=== PATIENT | male | born 1975 | race Caucasian/White ===

== ENCOUNTER 2018-08-23 15:53 | Inpatient (IN) | payer SELFPAY ==
[2018-08-23 16:18] LABS: Basophils # (Auto) 0.3 K/mm3 (0.0-0.1); Basophils % (Auto) 2.7 % (0.0-1.8); Eosinophils % (Auto) 0.2 % (0.0-4.3); Hematocrit 36.4 % (35.5-45.6); Hemoglobin 12.7 gm/dl (11.8-15.2); Lymphocytes # (Auto) 1.2 K/mm3 (1.2-5.4); Lymphocytes % (Auto) 12.7 % (13.4-35.0); Mean Corpuscular HGB Conc 35 % (32-34); Mean Corpuscular Volume 101 fl (84-94); Monocytes # (Auto) 0.4 K/mm3 (0.0-0.8); Monocytes % (Auto) 4.6 % (0.0-7.3); Platelet Count 187 K/mm3 (140-440); Red Blood Count 3.61 M/mm3 (3.65-5.03); Red Cell Distribution Width 14.4 % (13.2-15.2)
[2018-08-23 16:23] LABS: INR 1.05 (0.87-1.13)
[2018-08-23 16:24] LABS: Partial Thromboplastin Time 21.5 Sec. (24.2-36.6)
[2018-08-23 16:29] LABS: Alanine Aminotransferase 77 units/L (7-56); Albumin 3.7 g/dL (3.9-5); BUN/Creatinine Ratio 15; Blood Urea Nitrogen 6 mg/dL (9-20); Hemolysis Index 16
[2018-08-23] MEDS ORDERED: LIDOCAINE VISCOUS 2% PO ONE (17:04)
[2018-08-23] MEDS ORDERED: ALUM-MAG HYDROX-SIMETH 200-200-20MG/5ML PO ONE (17:04)
[2018-08-23] MEDS ORDERED: NACL 0.9% 1000 ML 1,000 ML IV ONE ×2 (17:04→18:26)
--- NOTE | 2018-08-23 17:08 | Emergency Department Report ---
ED General Adult HPI - General Chief complaint: Weakness Stated complaint: WEAKNESS/LEGS NUMB Time Seen by Provider: 08/23/18 17:03 Source: EMS Mode of arrival: Stretcher Limitations: Physical Limitation - History of Present Illness Initial comments: Patient is a 43-year-old male Emergency with complaints of epigastric pain and bilateral leg numbness and weakness. Patient states that his symptoms been going on for 2 days. Patient states that he is also having nausea and vomiting. Patient states falling frequently. Patient states that he has been drinking a lot of all call for the past 2 months. Patient states epigastric pain as a 10 out of 10 and is nonradiating. Patient states that the pain is better with rest and worse with alcohol and food intake. Patient also states the pain is worse with vomiting. Patient's last alcoholic drink this morning. -: Sudden Location: abdomen Radiation: non-radiation Severity scale (0 -10): 10 Quality: burning Consistency: constant Improves with: rest Worsens with: eating Associated Symptoms: nausea/vomiting, weakness. denies: confusion, chest pain, cough, diaphoresis, fever/chills, headaches, loss of appetite, malaise, rash, seizure, shortness of breath, syncope Treatments Prior to Arrival: none - Related Data Home Medications Medication Instructions Recorded Confirmed Last Taken Esomeprazole Magnesium [Nexium] 10 mg PO DAILY 03/23/14 08/23/18 Unknown ALPRAZolam [Xanax TAB] 0.25 mg PO TID 08/23/18 08/23/18 Unknown Acetaminophen/Diphenhydramine 1 tab PO DAILY 08/23/18 08/23/18 Unknown [Acetaminophen-Diphenhyd 500-25] Atenolol/Chlorthalidone [Tenoretic 1 tab PO QDAY 08/23/18 08/23/18 Unknown 50-25] PARoxetine [Paxil] 20 mg PO DAILY 08/23/18 08/23/18 Unknown Tamsulosin [Flomax] 0.4 mg PO QDAY 08/23/18 08/23/18 Unknown amLODIPine [Norvasc] 10 mg PO DAILY 08/23/18 08/23/18 Unknown Allergies Allergy/AdvReac Type Severity Reaction Status Date / Time No Known Allergies Allergy Unverified 03/23/14 09:26 ED Review of Systems ROS: Stated complaint: WEAKNESS/LEGS NUMB Other details as noted in HPI Constitutional: denies: chills, fever Eyes: denies: eye pain, eye discharge, vision change ENT: denies: ear pain, throat pain Respiratory: denies: cough, shortness of breath, wheezing Cardiovascular: denies: chest pain, palpitations Endocrine: no symptoms reported Gastrointestinal: abdominal pain, nausea, vomiting. denies: diarrhea, constipation, hematemesis, melena, hematochezia Genitourinary: denies: urgency, dysuria Musculoskeletal: denies: back pain, joint swelling, arthralgia Skin: denies: rash, lesions Neurological: weakness, numbness. denies: headache Psychiatric: denies: anxiety, depression Hematological/Lymphatic: denies: easy bleeding, easy bruising ED Past Medical Hx - Past Medical History Previous Medical History?: Yes Hx Psychiatric Treatment: (depression) Additional medical history: enlarged liver, enlarged prostate, depression - Surgical History Past Surgical History?: No - Family History Family history: no significant - Social History Smoking Status: Heavy Tobacco Smoker Substance Use Type: Alcohol (daily) - Medications Home Medications: Home Medications Medication Instructions Recorded Confirmed Last Taken Type Esomeprazole Magnesium [Nexium] 10 mg PO DAILY 03/23/14 08/23/18 Unknown History ALPRAZolam [Xanax TAB] 0.25 mg PO TID 08/23/18 08/23/18 Unknown History Acetaminophen/Diphenhydramine 1 tab PO DAILY 08/23/18 08/23/18 Unknown History [Acetaminophen-Diphenhyd 500-25] Atenolol/Chlorthalidone [Tenoretic 1 tab PO QDAY 08/23/18 08/23/18 Unknown History 50-25] PARoxetine [Paxil] 20 mg PO DAILY 08/23/18 08/23/18 Unknown History Tamsulosin [Flomax] 0.4 mg PO QDAY 08/23/18 08/23/18 Unknown History amLODIPine [Norvasc] 10 mg PO DAILY 08/23/18 08/23/18 Unknown History ED Physical Exam - General Limitations: No Limitations General appearance: alert, in no apparent distress - Head Head exam: Present: atraumatic, normocephalic - Eye Eye exam: Present: normal appearance - ENT ENT exam: Present: mucous membranes dry - Neck Neck exam: Present: normal inspection - Respiratory Respiratory exam: Present: normal lung sounds bilaterally. Absent: respiratory distress - Cardiovascular Cardiovascular Exam: Present: regular rate, normal rhythm. Absent: systolic murmur, diastolic murmur, rubs, gallop - GI/Abdominal GI/Abdominal exam: Present: soft, tenderness (epigastric tenderness), normal bowel sounds - Rectal Rectal exam: Present: deferred - Extremities Exam Extremities exam: Present: normal inspection - Back Exam Back exam: Present: normal inspection - Neurological Exam Neurological exam: Present: alert, oriented X3 - Psychiatric Psychiatric exam: Present: normal affect, normal mood - Skin Skin exam: Present: warm, dry, intact, normal color. Absent: rash ED Course Vital Signs 08/23/18 08/23/18 08/23/18 15:58 16:00 16:16 Temperature 98 F Pulse Rate 99 H 102 H 100 H Respiratory 16 23 23 Rate Blood Pressure 121/83 Blood Pressure 121/81 [Right] O2 Sat by Pulse 96 99 98 Oximetry 08/23/18 08/23/18 08/23/18 16:30 16:46 17:00 Temperature Pulse Rate 97 H 99 H 97 H Respiratory 26 H 25 H 24 Rate Blood Pressure 121/83 121/83 121/83 Blood Pressure [Right] O2 Sat by Pulse 97 97 99 Oximetry 08/23/18 08/23/18 08/23/18 17:16 17:30 17:46 Temperature Pulse Rate 102 H 99 H 100 H Respiratory 25 H 23 24 Rate Blood Pressure 130/88 136/94 130/88 Blood Pressure [Right] O2 Sat by Pulse 97 98 99 Oximetry 08/23/18 08/23/18 08/23/18 18:00 18:16 18:30 Temperature Pulse Rate 98 H 102 H 98 H Respiratory 25 H 19 24 Rate Blood Pressure 130/93 130/93 124/90 Blood Pressure [Right] O2 Sat by Pulse 97 97 97 Oximetry 08/23/18 08/23/18 08/23/18 18:46 19:00 19:16 Temperature Pulse Rate 98 H 98 H 97 H Respiratory 25 H 26 H 26 H Rate Blood Pressure 124/90 114/74 114/74 Blood Pressure [Right] O2 Sat by Pulse 97 96 98 Oximetry 08/23/18 08/23/18 08/23/18 19:30 19:46 20:00 Temperature Pulse Rate 99 H 96 H 97 H Respiratory 27 H 25 H 25 H Rate Blood Pressure 140/93 140/93 140/91 Blood Pressure [Right] O2 Sat by Pulse 98 96 Oximetry 08/23/18 08/23/18 08/23/18 20:16 20:30 20:46 Temperature Pulse Rate 101 H 100 H 100 H Respiratory 19 27 H 24 Rate Blood Pressure 140/91 144/96 140/93 Blood Pressure [Right] O2 Sat by Pulse Oximetry 08/23/18 08/23/18 08/23/18 21:00 21:16 21:30 Temperature Pulse Rate 94 H 95 H 93 H Respiratory 22 21 21 Rate Blood Pressure 135/100 135/100 143/105 Blood Pressure [Right] O2 Sat by Pulse Oximetry 08/23/18 08/23/18 08/23/18 21:46 22:00 22:16 Temperature Pulse Rate 94 H 95 H 97 H Respiratory 20 21 24 Rate Blood Pressure 135/100 147/105 143/105 Blood Pressure [Right] O2 Sat by Pulse Oximetry 08/23/18 08/23/18 08/24/18 22:30 22:46 02:46 Temperature Pulse Rate 101 H 100 H 98 H Respiratory 22 23 19 Rate Blood Pressure 148/105 148/105 Blood Pressure 139/95 [Right] O2 Sat by Pulse 96 Oximetry - Reevaluation(s) Reevaluation #1: Patient states his epigastric pain is worsening. We'll do a CT of the abdomen. 08/23/18 19:06 Is still complaining of 10 out of 10 pain in his epigastrium. CT ordered. I will give Dilaudid. 08/23/18 20:31 Patient still complaining of abdominal pain. Patient admitted to the hospitalist service. Patient agrees with plan of care. Patient was given another milligram of Dilaudid. Patient's sodium has not improved with all the fluids. 08/24/18 00:01 - Consultations Consultation #1: Hospitalist consult for admission. Hospitalist to admit patient. 08/24/18 00:02 ED Medical Decision Making - Lab Data Result diagrams: 08/23/18 16:00 08/23/18 22:46 - Radiology Data Radiology results: report reviewed FINAL REPORT EXAM: CT ABDOMEN PELVIS W CON HISTORY: abd pain. TECHNIQUE: Helical CT scan through the abdomen and pelvis after ingestion of oral contrast and during intravenous injection of iodinated contrast. Images are reconstructed in the sagittal and coronal planes. PRIORS: None. FINDINGS: Images lung bases show scattered patchy airspace infiltrates in the bilateral lung bases greater on the left than the right. There is diffuse low-attenuation of the liver consistent with fatty infiltration. The liver is enlarged measuring 26.2 cm in craniocaudal dimension. The gallbladder, spleen and adrenal glands appear normal. There is mild graying of the peripancreatic fat around the area of the head and uncinate process. Uncinate process is enlarged measuring 4.1 x 3.3 cm. There are several mildly enlarged retroperitoneal lymph nodes, the largest is left para-aortic below the left renal vein measuring 2.0 cm in long axis dimension. A lymph node in the lesser sac measures 1.1 cm. The kidneys appear normal. The pelvic organs appear grossly normal. The stomach appears grossly within normal limits. There are no abnormally dilated loops of bowel. A normal-appearing appendix is identified. Oral contrast progressed into the mid small bowel. The abdominal aorta has a normal diameter. There is degenerative disc disease of the lumbar spine. There is a left inguinal hernia containing normal appearing fat. IMPRESSION: 1. Findings most likely represent acute pancreatitis involving the head and uncinate process. The uncinate process is enlarged and therefore a mass cannot be excluded. 2. Retroperitoneal and upper abdominal adenopathy may be inflammatory or related to hepatocellular disease but malignancy cannot be excluded. Close clinical follow-up and short interval follow-up CT scan is recommended. 3. Diffuse fatty infiltration of the liver and hepatomegaly. Correlation with LFTs is recommended 4. Patchy airspace infiltrates in the bilateral lung bases most consistent with pneumonia Transcribed By: [facility] Dictated By: THREESE SUE MD Electronically Authenticated By: THERESE SUE MD Signed Date/Time: 08/24/18 0205 - Medical Decision Making Patient is a 43-year-old male presents emergency room with epigastric pain and leg weakness. Patient is a known alcoholic. Patient is been drinking for 2 months. Patient I'll call negative. Patient found to have hyponatremia most likely secondary be reported alvino and alcohol use. Patient also found to have abdominal pain and epigastric pain. Patient's epigastric pain is intractable. Patient of the abdominal pain is most likely secondary to alcoholic gastritis. Patient's leg weakness most likely secondary to try imbalance and alcohol use. Patient admitted to the hospitalist service for further evaluation treatment. CT scan is positive for pancreatitis. - Differential Diagnosis hyponatremia. Leg weakness. Alcoholism. Gastritis. Abdominal pain. Critical Care Time: Yes Critical care attestation.: If time is entered above; I have spent that time in minutes in the direct care of this critically ill patient, excluding procedure time. Critical Care Time: 55 minutes ED Disposition Clinical Impression: Hyponatremia, Weakness, Leg weakness, bilateral, Hypokalemia Alcoholic gastritis Qualifiers: Chronicity: acute Gastritis bleeding: without bleeding Qualified Code(s): K29.20 - Alcoholic gastritis without bleeding Abdominal pain Qualifiers: Abdominal location: epigastric Qualified Code(s): R10.13 - Epigastric pain Pancreatitis Qualifiers: Chronicity: acute Pancreatitis type: alcohol induced Acute pancreatitis complication: unspecified Qualified Code(s): K85.20 - Alcohol induced acute pancreatitis without necrosis or infection Disposition: OP ADMIT IP TO THIS HOSP Is pt being admited?: Yes Does the pt Need Aspirin: No Condition: Critical Time of Disposition: 00:00
[2018-08-23] MEDS: KCL 10MEQ/100ML 10 MEQ/100 ML BAG IV SCH ×5 (17:27→21:27)
[2018-08-23] MEDS ORDERED: VITAMIN B-1 100 MG, FOLVITE 1 MG, INFUVITE 10 ML in NACL 0.9% 1000 ML 1,000 ML IV ONE (19:30)
[2018-08-23] MEDS ORDERED: PROTONIX IV ONE (20:29)
[2018-08-23] MEDS ORDERED: DILAUDID IV ONE ×2 (20:30→23:58)
[2018-08-23 23:36] LABS: Alanine Aminotransferase 74 units/L (7-56); BUN/Creatinine Ratio 15; Blood Urea Nitrogen 6 mg/dL (9-20); Calcium 8.5 mg/dL (8.4-10.2); Hemolysis Index 5
[2018-08-24] MEDS ORDERED: ZOFRAN IV PRN ×2 (00:25→01:26)
[2018-08-24] MEDS ORDERED: D50W (25GM) Syringe IV PRN (00:25)
[2018-08-24] MEDS ORDERED: TYLENOL PO PRN ×2 (00:25→01:26)
[2018-08-24] MEDS ORDERED: SODIUM CHLORIDE FLUSH SYRINGE 10 ML IV PRN ×2 (00:25→01:26)
[2018-08-24] MEDS ORDERED: VITAMIN B-1 100 MG, FOLVITE 1 MG, INFUVITE 10 ML in NACL 0.9% 1000 ML 1,000 ML IV ONE (00:41)
[2018-08-24] MEDS ORDERED: HALDOL IV PRN (00:42)
[2018-08-24] MEDS ORDERED: ATIVAN PO PRN (00:42)
--- NOTE | 2018-08-24 00:49 | History and Physical Report ---
History of Present Illness Date of examination: 08/24/18 Date of admission: 08/23/18 Chief complaint: epigastric pain and bilateral leg numbness, shakiness and weakness History of present illness: Pt is a 43 y/o male with no prior past medical problem except for alcohol abuse who presents to the ER with c/o complaints of epigastric pain and bilateral leg shaking, numbness and weakness. Patient states that he has been having abdominal pain for 2 days, the pain is is sharp pain located in his epigastric area, without radiation, patient states that the pain is aggravated with food or fluid intakes, he reports nausea, denies vomiting, denies diarrhea, denies f ever, denies chills. Pt also admits to drinking alcohol (wine) almost everyday after work, he drinks 1 in a half bottle of wine, he states that he last drinks alcohol yesterday morning. Pt was seen in the ER and admitted for abdominal pain, alcohol abuse. Past History Past Medical History: No medical history Past Surgical History: No surgical history Social history: , lives with family, smoking (1ppd, ), alcohol abuse (15 bottle of wine per day) Family history: no significant family history Medications and Allergies Allergies Allergy/AdvReac Type Severity Reaction Status Date / Time No Known Allergies Allergy Unverified 03/23/14 09:26 Home Medications Medication Instructions Recorded Confirmed Last Taken Type Esomeprazole Magnesium [Nexium] 10 mg PO DAILY 03/23/14 08/23/18 Unknown History ALPRAZolam [Xanax TAB] 0.25 mg PO TID 08/23/18 08/23/18 Unknown History Acetaminophen/Diphenhydramine 1 tab PO DAILY 08/23/18 08/23/18 Unknown History [Acetaminophen-Diphenhyd 500-25] Atenolol/Chlorthalidone [Tenoretic 1 tab PO QDAY 08/23/18 08/23/18 Unknown History 50-25] PARoxetine [Paxil] 20 mg PO DAILY 08/23/18 08/23/18 Unknown History Tamsulosin [Flomax] 0.4 mg PO QDAY 08/23/18 08/23/18 Unknown History amLODIPine [Norvasc] 10 mg PO DAILY 08/23/18 08/23/18 Unknown History Active Meds: Active Medications Acetaminophen (Tylenol) 650 mg PO Q4H PRN PRN Reason: Pain MILD(1-3)/Fever >100.5/CANO Dextrose (D50w (25gm) Syringe) 50 ml IV PRN PRN PRN Reason: Hypoglycemia Famotidine (Pepcid) 20 mg PO BID BILLY Haloperidol Lactate (Haldol) 5 mg IV Q1H PRN PRN Reason: Unrespon. to mult. doses BZD's Thiamine HCl 100 mg/ Folic Acid 1 mg/ Multivitamins/Minerals 10 ml/ Sodium Chloride 1,011.2 mls @ 250 mls/hr IV Q24HR ONE Stop: 08/24/18 04:43 Insulin Human Regular (Humulin R) 0 units SUB-Q ACHS BILLY; Protocol Lorazepam (Ativan) 2 mg IV Q1H PRN PRN Reason: CIWA-Ar 8-15 Lorazepam (Ativan) 2 mg PO Q2HR PRN PRN Reason: CIWA-Ar 16-25 Ondansetron HCl (Zofran) 4 mg IV Q8H PRN PRN Reason: Nausea And Vomiting Oxycodone/Acetaminophen (Percocet 5/325) 1 tab PO Q6H PRN PRN Reason: Pain, Moderate (4-6) Sodium Chloride (Sodium Chloride Flush Syringe 10 Ml) 10 ml IV BID BILLY Sodium Chloride (Sodium Chloride Flush Syringe 10 Ml) 10 ml IV PRN PRN PRN Reason: LINE FLUSH Review of Systems Gastrointestinal: abdominal pain, nausea Psychiatric: anxiety Exam - Constitutional Vitals: Temp Pulse Resp BP Pulse Ox 98 F 100 H 23 148/105 96 08/23/18 15:58 08/23/18 22:46 08/23/18 22:46 08/23/18 22:46 08/23/18 20:00 General appearance: Present: no acute distress - EENT Eyes: Present: EOM intact, scleral icterus ENT: hearing intact - Neck Neck: Present: normal ROM - Respiratory Respiratory effort: normal Respiratory: bilateral: CTA - Cardiovascular Rhythm: regular - Extremities Extremities: no ischemia, No edema Peripheral Pulses: within normal limits - Abdominal General gastrointestinal: Present: tender, distended Male genitourinary: Present: deferred - Rectal Rectal Exam: deferred - Integumentary Integumentary: Present: warm - Musculoskeletal Musculoskeletal: strength equal bilaterally - Psychiatric Psychiatric: cooperative - Neurologic Neurologic: moves all extremities Results - Labs CBC & Chem 7: 08/23/18 16:00 08/24/18 04:38 Labs: Laboratory Last Values WBC 9.5 K/mm3 (4.5-11.0) 08/23/18 16:00 RBC 3.61 M/mm3 (3.65-5.03) L 08/23/18 16:00 Hgb 12.7 gm/dl (11.8-15.2) 08/23/18 16:00 Hct 36.4 % (35.5-45.6) 08/23/18 16:00 MCV 101 fl (84-94) H 08/23/18 16:00 MCH 35 pg (28-32) H 08/23/18 16:00 MCHC 35 % (32-34) H 08/23/18 16:00 RDW 14.4 % (13.2-15.2) 08/23/18 16:00 Plt Count 187 K/mm3 (140-440) 08/23/18 16:00 Lymph % (Auto) 12.7 % (13.4-35.0) L 08/23/18 16:00 Moore % (Auto) 4.6 % (0.0-7.3) 08/23/18 16:00 Eos % (Auto) 0.2 % (0.0-4.3) 08/23/18 16:00 Baso % (Auto) 2.7 % (0.0-1.8) H 08/23/18 16:00 Lymph # 1.2 K/mm3 (1.2-5.4) 08/23/18 16:00 Moore # 0.4 K/mm3 (0.0-0.8) 08/23/18 16:00 Eos # 0.0 K/mm3 (0.0-0.4) 08/23/18 16:00 Baso # 0.3 K/mm3 (0.0-0.1) H 08/23/18 16:00 Seg Neutrophils % 79.8 % (40.0-70.0) H 08/23/18 16:00 Seg Neutrophils # 7.5 K/mm3 (1.8-7.7) 08/23/18 16:00 PT 14.1 Sec. (12.2-14.9) 08/23/18 16:00 INR 1.05 (0.87-1.13) 08/23/18 16:00 APTT 21.5 Sec. (24.2-36.6) L 08/23/18 16:00 Sodium 126 mmol/L (137-145) L 08/23/18 22:46 Potassium 3.0 mmol/L (3.6-5.0) L 08/23/18 22:46 Chloride 80.9 mmol/L (98-107) L 08/23/18 22:46 Carbon Dioxide 25 mmol/L (22-30) 08/23/18 22:46 Anion Gap 23 mmol/L 08/23/18 22:46 BUN 6 mg/dL (9-20) L 08/23/18 22:46 Creatinine 0.4 mg/dL (0.8-1.5) L 08/23/18 22:46 Estimated GFR > 60 ml/min 08/23/18 22:46 BUN/Creatinine Ratio 15 % 08/23/18 22:46 Glucose 270 mg/dL (75-100) H 08/23/18 22:46 Calcium 8.5 mg/dL (8.4-10.2) 08/23/18 22:46 Total Bilirubin 2.50 mg/dL (0.1-1.2) H 08/23/18 22:46 AST 92 units/L (5-40) H 08/23/18 22:46 ALT 74 units/L (7-56) H 08/23/18 22:46 Alkaline Phosphatase 201 units/L (35-129) H 08/23/18 22:46 Total Protein 6.4 g/dL (6.3-8.2) 08/23/18 22:46 Albumin 4.0 g/dL (3.9-5) 08/23/18 22:46 Albumin/Globulin Ratio 1.7 % 08/23/18 22:46 Plasma/Serum Alcohol < 0.01 % (0-0.07) 08/23/18 16:00 Assessment and Plan Assessment and plan: 1. Epigastric abdominal pain 2. Alcohol use disorder 3. Lower extremities weakness (due to alcohol withdrawal) 4. Hyponatremia 5. Dehydration 5. Elevated LFTs (likely due to long standing alcohol used) 6. Hyperbilirubenia 7. Renal insufficiency (state 2-3, new onset, unknown baseline) 8. Hyperglycemia 9. Tobacco use disorder Plan Admit to [facility] for abdominal pain and alcohol abuse Initiate CIWA protocol Keep NPO except for meds Oxycodone PRN for abdominal pain Initiate glycemic management with insulin per Sliding scale NS for hydration, renal perfusion If creatinine remains elevated, will consult nephrology Banana bag Q24hr Check lipase level Monitor Electrolytes K/Mg and replace PRN CT of the abdomen (pending) Futher plan per hospital course Plan of care was d/w pt, voiced understanding Pt's condition and plan of care of care discussed with the attending Advance Directives: Yes VTE prophylaxis?: Mechanical Plan of care discussed with patient/family: Yes
[2018-08-24] MEDS: PEPCID PO SCH ×3 (01:04→23:09)
--- NOTE | 2018-08-24 02:05 | Cat Scan Report ---
FINAL REPORT EXAM: CT ABDOMEN PELVIS W CON HISTORY: abd pain. TECHNIQUE: Helical CT scan through the abdomen and pelvis after ingestion of oral contrast and durin g intravenous injection of iodinated contrast. Images are reconstructed in the sagittal and coronal p lanes. PRIORS: None. FINDINGS: Images lung bases show scattered patchy airspace infiltrates in the bilateral lung bases greater on t he left than the right. There is diffuse low-attenuation of the liver consistent with fatty infiltration. The liver is enlarg ed measuring 26.2 cm in craniocaudal dimension. The gallbladder, spleen and adrenal glands appear nor mal. There is mild graying of the peripancreatic fat around the area of the head and uncinate process. Unc inate process is enlarged measuring 4.1 x 3.3 cm. There are several mildly enlarged retroperitoneal lymph nodes, the largest is left para-aortic below the left renal vein measuring 2.0 cm in long axis dimension. A lymph node in the lesser sac measures 1.1 cm. The kidneys appear normal. The pelvic organs appear grossly normal. The stomach appears grossly within normal limits. There are no abnormally dilated loops of bowel. A normal-appearing appendix is identified. Oral contr ast progressed into the mid small bowel. The abdominal aorta has a normal diameter. There is degenerative disc disease of the lumbar spine. There is a left inguinal hernia containing no rmal appearing fat. IMPRESSION: 1. Findings most likely represent acute pancreatitis involving the head and uncinate process. The unc inate process is enlarged and therefore a mass cannot be excluded. 2. Retroperitoneal and upper abdominal adenopathy may be inflammatory or related to hepatocellular di sease but malignancy cannot be excluded. Close clinical follow-up and short interval follow-up CT sca n is recommended. 3. Diffuse fatty infiltration of the liver and hepatomegaly. Correlation with LFTs is recommended 4. Patchy airspace infiltrates in the bilateral lung bases most consistent with pneumonia
[2018-08-24] MEDS ORDERED: APRESOLINE IV ONE (02:30)
[2018-08-24] MEDS ORDERED: APRESOLINE ONE (02:34)
[2018-08-24] MEDS ORDERED: PERCOCET 5/325 ONE (02:42)
[2018-08-24] MEDS ORDERED: ATIVAN ONE (02:42)
[2018-08-24] MEDS: ATIVAN IV PRN ×2 (02:43→23:13)
[2018-08-24] MEDS: PERCOCET 5/325 PO PRN ×2 (02:43→10:47)
[2018-08-24] MEDS: APRESOLINE IV SCH ×5 (06:43→23:10)
[2018-08-24 07:35] LABS: Alanine Aminotransferase 72 units/L (7-56); Albumin 3.7 g/dL (3.9-5); BUN/Creatinine Ratio 13; Blood Urea Nitrogen 5 mg/dL (9-20); Calcium 8.8 mg/dL (8.4-10.2); Hemolysis Index 0; LDL Cholesterol,Direct 85 mg/dL (50-130)
[2018-08-24 07:57] LABS: Chol/HDL Ratio 3.86 %; HDL Cholesterol 36 mg/dL (40-59)
--- NOTE | 2018-08-24 08:27 | Event Note ---
Date: 08/24/18 Patient with history of alcohol abuse was admitted early this morning/midnight with epigastric pain, generalized weakness Workup is consistent with multiple skeletal abnormalities, acute pancreatitis Patient seen and examined Assessment and plan; --Acute pancreatitis --Hyponatremia --Hypokalemia --Alcoholic liver disease --Type 2 diabetes mellitus[A1c 10.8] --Chronic alcohol use --Alcohol withdrawal symptoms NPO IV fluids Potassium chloride IV nothing by mouth Accu-Chek sliding scale coverage, insulin as needed Closely monitor liver function tests GI evaluation if needed Alcohol withdrawal symptoms/CIWA protocol SCDs
[2018-08-24] MEDS: K-DUR PO SCH ×2 (10:49→14:51)
[2018-08-24] MEDS: KCL 10MEQ/100ML 10 MEQ/100 ML BAG IV SCH ×3 (10:50→14:00)
[2018-08-24] MEDS: HumuLIN R SUB-Q SCH ×4 (12:51→23:10)
[2018-08-24] MEDS: NACL 0.9% 1000 ML 1,000 ML IV SCH ×2 (17:57→18:49)
[2018-08-24] MEDS: SODIUM CHLORIDE FLUSH SYRINGE 10 ML IV SCH ×2 (23:12→23:15)
[2018-08-25] MEDS: NACL 0.9% 1000 ML 1,000 ML IV SCH ×2 (02:43→09:50)
[2018-08-25] MEDS: APRESOLINE IV SCH ×4 (02:52→13:55)
[2018-08-25 05:06] LABS: Basophils % (Auto) 0.1 % (0.0-1.8); Hematocrit 36.8 % (35.5-45.6); Hemoglobin 12.3 gm/dl (11.8-15.2); Lymphocytes # (Auto) 1.3 K/mm3 (1.2-5.4); Lymphocytes % (Auto) 8.4 % (13.4-35.0); Mean Corpuscular HGB Conc 33 % (32-34); Mean Corpuscular Volume 103 fl (84-94); Monocytes # (Auto) 1.3 K/mm3 (0.0-0.8); Monocytes % (Auto) 8.4 % (0.0-7.3); Platelet Count 192 K/mm3 (140-440); Red Blood Count 3.56 M/mm3 (3.65-5.03); Red Cell Distribution Width 14.8 % (13.2-15.2)
[2018-08-25 05:46] LABS: Alanine Aminotransferase 52 units/L (7-56); Albumin 3.4 g/dL (3.9-5); BUN/Creatinine Ratio 40; Blood Urea Nitrogen 8 mg/dL (9-20); Calcium 8.7 mg/dL (8.4-10.2); Hemolysis Index 40
[2018-08-25] MEDS ORDERED: SODIUM PHOSPHATE 45 MMOL in NACL 0.9% 500 ML 500 ML IV ONE (08:30)
--- NOTE | 2018-08-25 08:35 | Progress Note ---
Assessment and Plan Assessment and plan: --Alcohol withdrawal symptoms; continue [facility] protocol Thiamin and folic acid --Acute pancreatitis; significantly improved Advance diet to soft diet, closely monitor --Hyponatremia: Mild improvement, closely monitor electrolytes --Hypokalemia; replace per protocol --Hypophosphatemia; replace per protocol --Alcoholic liver disease; liver function tests trending down --Hepatic encephalopathy; ammonia significantly improved Patient is alert awake oriented 3 --Type 2 diabetes mellitus[A1c 10.8]; Accu-Chek sliding scale coverage insulin --Chronic alcohol use; counseling advice to quit Patient had acute alcohol rehabilitation and medical stable. --Tobacco use; smoking cessation and nicotine patch Physical therapy, ambulate as tolerated possible discharge in 1-2 days if stable History Interval history: Patient seen and examined ,medical records reviewed Admitted with alcohol intoxication, acute pancreatitis, generalized weakness Lower extremity numbness Lipase levels significantly improved Patient is on [facility] protocol Hospitalist Physical - Constitutional Vitals: Temp Pulse Resp BP Pulse Ox 98.4 F 129 H 18 143/84 97 08/25/18 08:12 08/25/18 08:12 08/25/18 08:12 08/25/18 08:12 08/25/18 08:12 General appearance: Present: no acute distress, well-nourished - EENT Eyes: Present: PERRL, EOM intact - Neck Neck: Present: supple, normal ROM - Respiratory Respiratory effort: normal Respiratory: bilateral: diminished, negative: rales, rhonchi, wheezing - Cardiovascular Rhythm: regular Heart Sounds: Present: S1 & S2 - Extremities Extremities: no ischemia, No edema - Abdominal General gastrointestinal: soft, non-tender, non-distended, normal bowel sounds - Integumentary Integumentary: Present: clear, warm - Psychiatric Psychiatric: appropriate mood/affect, cooperative - Neurologic Neurologic: CNII-XII intact, moves all extremities Results - Labs CBC & Chem 7: 08/25/18 03:55 08/25/18 03:55 Labs: Laboratory Last Values WBC 15.8 K/mm3 (4.5-11.0) H 08/25/18 03:55 RBC 3.56 M/mm3 (3.65-5.03) L 08/25/18 03:55 Hgb 12.3 gm/dl (11.8-15.2) 08/25/18 03:55 Hct 36.8 % (35.5-45.6) 08/25/18 03:55 MCV 103 fl (84-94) H 08/25/18 03:55 MCH 35 pg (28-32) H 08/25/18 03:55 MCHC 33 % (32-34) 08/25/18 03:55 RDW 14.8 % (13.2-15.2) 08/25/18 03:55 Plt Count 192 K/mm3 (140-440) 08/25/18 03:55 Lymph % (Auto) 8.4 % (13.4-35.0) L 08/25/18 03:55 [place] % (Auto) 8.4 % (0.0-7.3) H 08/25/18 03:55 Eos % (Auto) 0.0 % (0.0-4.3) 08/25/18 03:55 Baso % (Auto) 0.1 % (0.0-1.8) 08/25/18 03:55 Lymph # 1.3 K/mm3 (1.2-5.4) 08/25/18 03:55 [place] # 1.3 K/mm3 (0.0-0.8) H 08/25/18 03:55 Eos # 0.0 K/mm3 (0.0-0.4) 08/25/18 03:55 Baso # 0.0 K/mm3 (0.0-0.1) 08/25/18 03:55 Seg Neutrophils % 83.1 % (40.0-70.0) H 08/25/18 03:55 Seg Neutrophils # 13.1 K/mm3 (1.8-7.7) H 08/25/18 03:55 PT 14.1 Sec. (12.2-14.9) 08/23/18 16:00 INR 1.05 (0.87-1.13) 08/23/18 16:00 APTT 21.5 Sec. (24.2-36.6) L 08/23/18 16:00 Sodium 127 mmol/L (137-145) L 08/25/18 03:55 Potassium 3.5 mmol/L (3.6-5.0) L D 08/25/18 03:55 Chloride 87.2 mmol/L (98-107) L 08/25/18 03:55 Carbon Dioxide 22 mmol/L (22-30) 08/25/18 03:55 Anion Gap 21 mmol/L 08/25/18 03:55 BUN 8 mg/dL (9-20) L 08/25/18 03:55 Creatinine 0.2 mg/dL (0.8-1.5) L 08/25/18 03:55 Estimated GFR > 60 ml/min 08/25/18 03:55 BUN/Creatinine Ratio 40 % 08/25/18 03:55 Glucose 185 mg/dL (75-100) H 08/25/18 03:55 POC Glucose 187 (70-105) H 08/25/18 05:35 Hemoglobin A1c 10.8 % (4-6) H 08/24/18 01:04 Calcium 8.7 mg/dL (8.4-10.2) 08/25/18 03:55 Phosphorus 1.60 mg/dL (2.5-4.5) L 08/25/18 03:55 Magnesium 1.70 mg/dL (1.7-2.3) 08/25/18 03:55 Total Bilirubin 2.80 mg/dL (0.1-1.2) H 08/25/18 03:55 AST 64 units/L (5-40) H 08/25/18 03:55 ALT 52 units/L (7-56) 08/25/18 03:55 Alkaline Phosphatase 183 units/L (35-129) H 08/25/18 03:55 Ammonia 73.0 umol/L (25-60) H 08/25/18 03:55 Total Protein 6.3 g/dL (6.3-8.2) 08/25/18 03:55 Albumin 3.4 g/dL (3.9-5) L 08/25/18 03:55 Albumin/Globulin Ratio 1.2 % 08/25/18 03:55 Triglycerides 121 mg/dL (2-149) 08/24/18 04:38 Cholesterol 139 mg/dL (50-199) 08/24/18 04:38 LDL Cholesterol Direct 85 mg/dL (50-130) 08/24/18 04:38 HDL Cholesterol 36 mg/dL (40-59) L 08/24/18 04:38 Cholesterol/HDL Ratio 3.86 % 08/24/18 04:38 Lipase 516 units/L (13-60) H 08/24/18 01:04 Plasma/Serum Alcohol < 0.01 % (0-0.07) 08/23/18 16:00
[2018-08-25] MEDS ORDERED: KPHOS 40 MMOL in NACL 0.9% 500 ML 500 ML IV ONE (09:00)
[2018-08-25] MEDS: LOPRESSOR PO SCH ×2 (09:45→21:28)
[2018-08-25] MEDS: PEPCID PO SCH ×2 (09:45→21:29)
[2018-08-25] MEDS: SODIUM CHLORIDE FLUSH SYRINGE 10 ML IV SCH ×2 (09:46→21:29)
[2018-08-25] MEDS: HumuLIN R SUB-Q SCH ×4 (09:46→22:45)
[2018-08-25] MEDS: XANAX PO PRN ×2 (10:36→19:51)
[2018-08-25] MEDS ORDERED: APRESOLINE IV PRN (14:00)
[2018-08-25] MEDS: HABITROL TD SCH (14:10)
[2018-08-25] MEDS: PERCOCET 5/325 PO PRN (17:28)
[2018-08-25] MEDS ORDERED: NEURONTIN PO PRN (20:00)
[2018-08-25] MEDS: NEURONTIN PO PRN (21:29)
[2018-08-26] MEDS: XANAX PO PRN ×2 (05:00→15:58)
[2018-08-26] MEDS: NEURONTIN PO PRN ×2 (05:00→21:31)
[2018-08-26] MEDS: HumuLIN R SUB-Q SCH ×4 (07:30→22:19)
[2018-08-26] MEDS: LOPRESSOR PO SCH ×2 (10:09→21:31)
[2018-08-26] MEDS: PEPCID PO SCH ×2 (10:09→21:33)
[2018-08-26] MEDS: HABITROL TD SCH (10:10)
[2018-08-26] MEDS: SODIUM CHLORIDE FLUSH SYRINGE 10 ML IV SCH ×2 (10:10→21:33)
--- NOTE | 2018-08-26 13:27 | Progress Note ---
Assessment and Plan Assessment and plan: --Alcohol withdrawal symptoms; continue [facility] protocol Thiamin and folic acid --Severe alcohol-related myopathy; PT OT and rehabilitation --Acute pancreatitis; significantly improved Advance diet to soft diet, closely monitor --Hyponatremia: Mild improvement, closely monitor electrolytes --Hypokalemia; replace per protocol --Hypophosphatemia; replace per protocol --Alcoholic liver disease; liver function tests trending down --Hepatic encephalopathy; ammonia significantly improved Patient is alert awake oriented 3 --Type 2 diabetes mellitus[A1c 10.8]; Accu-Chek sliding scale coverage insulin --Chronic alcohol use; counseling advice to quit Patient had acute alcohol rehabilitation and medical stable. --Tobacco use; smoking cessation and nicotine patch Physical therapy, ambulate as tolerated possible discharge in 1-2 days if stable History Interval history: Patient seen and examined this morning medical records reviewed Physical aspect and no new complaints Has significant hyponatremia Hospitalist Physical - Constitutional Vitals: Temp Pulse Resp BP Pulse Ox 98.2 F 90 17 120/88 98 08/26/18 04:14 08/26/18 10:09 08/26/18 04:14 08/26/18 10:09 08/26/18 04:14 General appearance: Present: no acute distress, well-nourished - EENT Eyes: Present: PERRL, EOM intact - Neck Neck: Present: supple, normal ROM - Respiratory Respiratory effort: normal Respiratory: bilateral: diminished, negative: rales, rhonchi, wheezing - Cardiovascular Rhythm: regular Heart Sounds: Present: S1 & S2 - Extremities Extremities: no ischemia, No edema, abnormal (severe weakness) - Abdominal General gastrointestinal: soft, non-tender, non-distended, normal bowel sounds - Integumentary Integumentary: Present: clear, warm - Psychiatric Psychiatric: appropriate mood/affect, cooperative - Neurologic Neurologic: moves all extremities, other (lower extremity weakness) Results - Labs CBC & Chem 7: 08/27/18 05:40 08/27/18 05:40 Labs: Laboratory Last Values WBC 15.8 K/mm3 (4.5-11.0) H 08/25/18 03:55 RBC 3.56 M/mm3 (3.65-5.03) L 08/25/18 03:55 Hgb 12.3 gm/dl (11.8-15.2) 08/25/18 03:55 Hct 36.8 % (35.5-45.6) 08/25/18 03:55 MCV 103 fl (84-94) H 08/25/18 03:55 MCH 35 pg (28-32) H 08/25/18 03:55 MCHC 33 % (32-34) 08/25/18 03:55 RDW 14.8 % (13.2-15.2) 08/25/18 03:55 Plt Count 192 K/mm3 (140-440) 08/25/18 03:55 Lymph % (Auto) 8.4 % (13.4-35.0) L 08/25/18 03:55 [place] % (Auto) 8.4 % (0.0-7.3) H 08/25/18 03:55 Eos % (Auto) 0.0 % (0.0-4.3) 08/25/18 03:55 Baso % (Auto) 0.1 % (0.0-1.8) 08/25/18 03:55 Lymph # 1.3 K/mm3 (1.2-5.4) 08/25/18 03:55 [place] # 1.3 K/mm3 (0.0-0.8) H 08/25/18 03:55 Eos # 0.0 K/mm3 (0.0-0.4) 08/25/18 03:55 Baso # 0.0 K/mm3 (0.0-0.1) 08/25/18 03:55 Seg Neutrophils % 83.1 % (40.0-70.0) H 08/25/18 03:55 Seg Neutrophils # 13.1 K/mm3 (1.8-7.7) H 08/25/18 03:55 PT 14.1 Sec. (12.2-14.9) 08/23/18 16:00 INR 1.05 (0.87-1.13) 08/23/18 16:00 APTT 21.5 Sec. (24.2-36.6) L 08/23/18 16:00 Sodium 127 mmol/L (137-145) L 08/25/18 03:55 Potassium 3.5 mmol/L (3.6-5.0) L D 08/25/18 03:55 Chloride 87.2 mmol/L (98-107) L 08/25/18 03:55 Carbon Dioxide 22 mmol/L (22-30) 08/25/18 03:55 Anion Gap 21 mmol/L 08/25/18 03:55 BUN 8 mg/dL (9-20) L 08/25/18 03:55 Creatinine 0.2 mg/dL (0.8-1.5) L 08/25/18 03:55 Estimated GFR > 60 ml/min 08/25/18 03:55 BUN/Creatinine Ratio 40 % 08/25/18 03:55 Glucose 185 mg/dL (75-100) H 08/25/18 03:55 POC Glucose 170 (70-105) H 08/26/18 05:26 Hemoglobin A1c 10.8 % (4-6) H 08/24/18 01:04 Calcium 8.7 mg/dL (8.4-10.2) 08/25/18 03:55 Phosphorus 1.60 mg/dL (2.5-4.5) L 08/25/18 03:55 Magnesium 1.70 mg/dL (1.7-2.3) 08/25/18 03:55 Total Bilirubin 2.80 mg/dL (0.1-1.2) H 08/25/18 03:55 AST 64 units/L (5-40) H 08/25/18 03:55 ALT 52 units/L (7-56) 08/25/18 03:55 Alkaline Phosphatase 183 units/L (35-129) H 08/25/18 03:55 Ammonia 73.0 umol/L (25-60) H 08/25/18 03:55 Total Protein 6.3 g/dL (6.3-8.2) 08/25/18 03:55 Albumin 3.4 g/dL (3.9-5) L 08/25/18 03:55 Albumin/Globulin Ratio 1.2 % 08/25/18 03:55 Triglycerides 121 mg/dL (2-149) 08/24/18 04:38 Cholesterol 139 mg/dL (50-199) 08/24/18 04:38 LDL Cholesterol Direct 85 mg/dL (50-130) 08/24/18 04:38 HDL Cholesterol 36 mg/dL (40-59) L 08/24/18 04:38 Cholesterol/HDL Ratio 3.86 % 08/24/18 04:38 Lipase 75 units/L (13-60) H 08/25/18 03:55 Plasma/Serum Alcohol < 0.01 % (0-0.07) 08/23/18 16:00
[2018-08-26 14:29] LABS: BUN/Creatinine Ratio 30; Blood Urea Nitrogen 12 mg/dL (9-20); Calcium 8.9 mg/dL (8.4-10.2); Hemolysis Index 4
[2018-08-26] MEDS ORDERED: K-DUR PO ONE (14:58)
[2018-08-26] MEDS ORDERED: LASIX IV ONE (19:11)
[2018-08-26] MEDS ORDERED: XANAX PO SCH (20:00)
[2018-08-27] MEDS: XANAX PO PRN ×2 (00:55→14:28)
[2018-08-27 06:42] LABS: Basophils # (Auto) 0.1 K/mm3 (0.0-0.1); Basophils % (Auto) 0.8 % (0.0-1.8); Eosinophils % (Auto) 0.6 % (0.0-4.3); Hematocrit 33.4 % (35.5-45.6); Hemoglobin 11.4 gm/dl (11.8-15.2); Lymphocytes # (Auto) 1.6 K/mm3 (1.2-5.4); Lymphocytes % (Auto) 20.7 % (13.4-35.0); Mean Corpuscular HGB Conc 34 % (32-34); Mean Corpuscular Volume 102 fl (84-94); Monocytes % (Auto) 12.7 % (0.0-7.3); Platelet Count 212 K/mm3 (140-440); Red Blood Count 3.28 M/mm3 (3.65-5.03); Red Cell Distribution Width 15.3 % (13.2-15.2)
[2018-08-27 06:51] LABS: Alanine Aminotransferase 59 units/L (7-56); Albumin 3.2 g/dL (3.9-5); BUN/Creatinine Ratio 28; Blood Urea Nitrogen 14 mg/dL (9-20); Calcium 9.1 mg/dL (8.4-10.2); Hemolysis Index 7
[2018-08-27] MEDS: HumuLIN R SUB-Q SCH ×4 (08:37→22:14)
[2018-08-27] MEDS ORDERED: NON-FORMULARY (Atenolol/Chlorthalidone [Tenoretic 50-25] 1 TAB) PO SCH (10:00)
--- NOTE | 2018-08-27 10:37 | Progress Note ---
Assessment and Plan Assessment and plan: --Alcohol withdrawal symptoms; continue [facility] protocol Thiamin and folic acid --Acute pancreatitis; significantly improved Advance diet to soft diet, closely monitor --Hyponatremia: Mild improvement, closely monitor electrolytes --Hypokalemia; replace per protocol --Hypophosphatemia; replace per protocol --Alcoholic liver disease; liver function tests trending down --Hepatic encephalopathy; ammonia significantly improved Patient is alert awake oriented 3 --Type 2 diabetes mellitus[A1c 10.8]; Accu-Chek sliding scale coverage insulin --Chronic alcohol use; counseling advice to quit Patient had acute alcohol rehabilitation and medical stable. --Tobacco use; smoking cessation and nicotine patch Physical therapy, ambulate as tolerated possible discharge in 1-2 days if stable History Interval history: Patient slightly better tolerating physical therapy PT recommend acute rehabilitation Vital signs noted No new complaints Hospitalist Physical - Constitutional Vitals: Temp Pulse Resp BP Pulse Ox 97.4 F L 80 18 127/96 99 08/27/18 08:35 08/27/18 08:35 08/27/18 08:35 08/27/18 08:35 08/27/18 08:35 General appearance: Present: no acute distress, well-nourished - EENT Eyes: Present: PERRL, EOM intact - Neck Neck: Present: supple, normal ROM - Respiratory Respiratory effort: normal Respiratory: bilateral: diminished, negative: rales, rhonchi, wheezing - Cardiovascular Rhythm: regular Heart Sounds: Present: S1 & S2 - Extremities Extremities: no ischemia, No edema, abnormal (severe weakness.) - Abdominal General gastrointestinal: soft, non-tender, non-distended, normal bowel sounds - Integumentary Integumentary: Present: clear, warm - Psychiatric Psychiatric: appropriate mood/affect, cooperative - Neurologic Neurologic: moves all extremities Results - Labs CBC & Chem 7: 08/27/18 05:40 08/27/18 05:40 Labs: Laboratory Last Values WBC 7.9 K/mm3 (4.5-11.0) 08/27/18 05:40 RBC 3.28 M/mm3 (3.65-5.03) L 08/27/18 05:40 Hgb 11.4 gm/dl (11.8-15.2) L 08/27/18 05:40 Hct 33.4 % (35.5-45.6) L 08/27/18 05:40 MCV 102 fl (84-94) H 08/27/18 05:40 MCH 35 pg (28-32) H 08/27/18 05:40 MCHC 34 % (32-34) 08/27/18 05:40 RDW 15.3 % (13.2-15.2) H 08/27/18 05:40 Plt Count 212 K/mm3 (140-440) 08/27/18 05:40 Lymph % (Auto) 20.7 % (13.4-35.0) 08/27/18 05:40 [place] % (Auto) 12.7 % (0.0-7.3) H 08/27/18 05:40 Eos % (Auto) 0.6 % (0.0-4.3) 08/27/18 05:40 Baso % (Auto) 0.8 % (0.0-1.8) 08/27/18 05:40 Lymph # 1.6 K/mm3 (1.2-5.4) 08/27/18 05:40 [place] # 1.0 K/mm3 (0.0-0.8) H 08/27/18 05:40 Eos # 0.0 K/mm3 (0.0-0.4) 08/27/18 05:40 Baso # 0.1 K/mm3 (0.0-0.1) 08/27/18 05:40 Seg Neutrophils % 65.2 % (40.0-70.0) 08/27/18 05:40 Seg Neutrophils # 5.2 K/mm3 (1.8-7.7) 08/27/18 05:40 PT 14.1 Sec. (12.2-14.9) 08/23/18 16:00 INR 1.05 (0.87-1.13) 08/23/18 16:00 APTT 21.5 Sec. (24.2-36.6) L 08/23/18 16:00 Sodium 130 mmol/L (137-145) L 08/27/18 05:40 Potassium 3.1 mmol/L (3.6-5.0) L 08/27/18 05:40 Chloride 90.0 mmol/L (98-107) L 08/27/18 05:40 Carbon Dioxide 23 mmol/L (22-30) 08/27/18 05:40 Anion Gap 20 mmol/L 08/27/18 05:40 BUN 14 mg/dL (9-20) 08/27/18 05:40 Creatinine 0.5 mg/dL (0.8-1.5) L 08/27/18 05:40 Estimated GFR > 60 ml/min 08/27/18 05:40 BUN/Creatinine Ratio 28 % 08/27/18 05:40 Glucose 212 mg/dL (75-100) H 08/27/18 05:40 POC Glucose 212 (70-105) H 08/27/18 05:32 Hemoglobin A1c 10.8 % (4-6) H 08/24/18 01:04 Calcium 9.1 mg/dL (8.4-10.2) 08/27/18 05:40 Phosphorus 3.30 mg/dL (2.5-4.5) 08/27/18 05:40 Magnesium 1.70 mg/dL (1.7-2.3) 08/27/18 05:40 Total Bilirubin 2.50 mg/dL (0.1-1.2) H 08/27/18 05:40 AST 95 units/L (5-40) H 08/27/18 05:40 ALT 59 units/L (7-56) H 08/27/18 05:40 Alkaline Phosphatase 200 units/L (35-129) H 08/27/18 05:40 Ammonia 73.0 umol/L (25-60) H 08/25/18 03:55 Total Protein 6.9 g/dL (6.3-8.2) 08/27/18 05:40 Albumin 3.2 g/dL (3.9-5) L 08/27/18 05:40 Albumin/Globulin Ratio 0.9 % 08/27/18 05:40 Triglycerides 121 mg/dL (2-149) 08/24/18 04:38 Cholesterol 139 mg/dL (50-199) 08/24/18 04:38 LDL Cholesterol Direct 85 mg/dL (50-130) 08/24/18 04:38 HDL Cholesterol 36 mg/dL (40-59) L 08/24/18 04:38 Cholesterol/HDL Ratio 3.86 % 08/24/18 04:38 Lipase 75 units/L (13-60) H 08/25/18 03:55 Plasma/Serum Alcohol < 0.01 % (0-0.07) 08/23/18 16:00
[2018-08-27] MEDS: SODIUM CHLORIDE FLUSH SYRINGE 10 ML IV SCH ×2 (12:27→22:14)
[2018-08-27] MEDS: LASIX IV SCH (12:27)
[2018-08-27] MEDS: HABITROL TD SCH (12:27)
[2018-08-27] MEDS: PEPCID PO SCH ×2 (12:28→22:14)
[2018-08-27] MEDS: FLOMAX PO SCH (12:29)
[2018-08-27] MEDS: PAXIL PO SCH (12:30)
[2018-08-27] MEDS: LOPRESSOR PO SCH ×2 (12:30→22:14)
[2018-08-27] MEDS: NORVASC PO SCH (12:30)
[2018-08-27] MEDS: THALITONE PO SCH (12:41)
[2018-08-27] MEDS: TENORMIN PO SCH (12:41)
[2018-08-27] MEDS: NEURONTIN PO PRN (14:28)
[2018-08-27] MEDS: PERCOCET 5/325 PO PRN (14:32)
[2018-08-28] MEDS: XANAX PO PRN (00:18)
[2018-08-28 05:55] LABS: Basophils % (Auto) 0.8 % (0.0-1.8); Eosinophils # (Auto) 0.1 K/mm3 (0.0-0.4); Eosinophils % (Auto) 1.6 % (0.0-4.3); Hematocrit 32.5 % (35.5-45.6); Lymphocytes # (Auto) 1.4 K/mm3 (1.2-5.4); Lymphocytes % (Auto) 26.4 % (13.4-35.0); Mean Corpuscular HGB Conc 34 % (32-34); Mean Corpuscular Volume 102 fl (84-94); Monocytes # (Auto) 0.7 K/mm3 (0.0-0.8); Monocytes % (Auto) 13.7 % (0.0-7.3); Platelet Count 240 K/mm3 (140-440); Red Blood Count 3.19 M/mm3 (3.65-5.03); Red Cell Distribution Width 14.8 % (13.2-15.2)
[2018-08-28 06:16] LABS: BUN/Creatinine Ratio 35; Blood Urea Nitrogen 14 mg/dL (9-20); Hemolysis Index 29
[2018-08-28] MEDS: HumuLIN R SUB-Q SCH ×4 (08:30→22:45)
[2018-08-28] MEDS: LASIX IV SCH (09:21)
[2018-08-28] MEDS: HABITROL TD SCH (09:21)
[2018-08-28] MEDS: TENORMIN PO SCH (09:21)
[2018-08-28] MEDS: THALITONE PO SCH (09:21)
[2018-08-28] MEDS: PEPCID PO SCH ×2 (09:22→22:30)
[2018-08-28] MEDS: NORVASC PO SCH (09:22)
[2018-08-28] MEDS: FLOMAX PO SCH (09:22)
[2018-08-28] MEDS: LOPRESSOR PO SCH ×2 (09:22→22:30)
[2018-08-28] MEDS: PAXIL PO SCH (09:22)
[2018-08-28] MEDS: SODIUM CHLORIDE FLUSH SYRINGE 10 ML IV SCH ×2 (09:23→22:31)
[2018-08-28] MEDS ORDERED: K-DUR PO NR (12:30)
[2018-08-28] MEDS: NEURONTIN PO PRN (13:57)
--- NOTE | 2018-08-28 14:25 | Discharge Summary ---
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 Hospitalization Condition: Stable Disposition: DC/[place]-06 HOME UNDER HOME [facility] Time spent for discharge: 32 min Core Measure Documentation - Palliative Care Palliative Care/ Comfort Measures: Not Applicable - Core Measures Any of the following diagnoses?: none Exam - Constitutional Vitals: Temp Pulse Resp BP Pulse Ox 97.9 F 75 18 125/85 98 08/28/18 07:57 08/28/18 09:22 08/28/18 10:00 08/28/18 09:22 08/28/18 07:57 General appearance: Present: no acute distress, well-nourished - EENT Eyes: Present: PERRL, EOM intact - Neck Neck: Present: supple, normal ROM - Respiratory Respiratory effort: normal Respiratory: negative: rales, rhonchi, wheezing - Cardiovascular Rhythm: regular Heart Sounds: Present: S1 & S2 - Extremities Extremities: no ischemia, No edema - Abdominal General gastrointestinal: Present: soft, non-tender, non-distended, normal bowel sounds - Integumentary Integumentary: Present: clear, warm - Musculoskeletal Musculoskeletal: strength equal bilaterally - Psychiatric Psychiatric: appropriate mood/affect - Neurologic Neurologic: CNII-XII intact, moves all extremities Plan Activity: advance as tolerated, fall precautions Diet: diabetic Additional Instructions: Advised to quit alcohol intake. Advised smoking cessation. Advised to see private neurologist in for lower extremity weakness does not improve physical therapy Follow up with: PRIMARY CARE, [Primary Care Provider] - 7 Days Prescriptions: amLODIPine [Norvasc] 10 mg PO DAILY #30 tablet Folic Acid 1 tab PO QDAY #30 tab Gabapentin [Neurontin] 200 mg PO TID PRN #90 capsule PRN Reason: LEG PAIN glipiZIDE [Glipizide] 5 mg PO DAILY #30 tablet Nicotine [Habitrol] 21 mg TD QDAY #30 patch Thiamine [Vitamin B-1] 100 mg PO QDAY #30 tablet
[2018-08-28] MEDS: GLUCOTROL PO SCH (17:30)
--- NOTE | 2018-08-28 21:06 | Progress Note ---
Assessment and Plan Assessment and plan: 43-year-old obese male patient was admitted with acute pancreatitis and alcohol withdrawal symptoms Placed on [facility] protocol, symptoms significantly improved, pancreatitis resolved Received physical therapy occupational therapy, PT recommended inpatient rehabilitation Social issues, no prior source for insurance, case management recommend home health with home PT. Patient is medically stable for discharge, pending home health set up --Alcohol withdrawal symptoms; resolved --Acute pancreatitis; significantly improved Advance diet to soft diet, closely monitor --Hyponatremia: Mild improvement, closely monitor electrolytes --Hypokalemia; replace per protocol --Hypophosphatemia; replace per protocol --Alcoholic liver disease; liver function tests trending down --Hepatic encephalopathy; ammonia significantly improved Patient is alert awake oriented 3 --Type 2 diabetes mellitus[A1c 10.8]; Accu-Chek sliding scale coverage insulin --Chronic alcohol use; counseling advice to quit Patient had acute alcohol rehabilitation and medical stable. --Tobacco use; smoking cessation and nicotine patch Patient advised alcohol rehabilitation upon discharge Verbalized understanding Physical therapy, ambulate as tolerated PT recommended inpatient rehabilitation Has social issues and appears source Case management to set up home health with PT possible discharge in 1-2 days if stable History Interval history: Patient seen and examined medical records reviewed Patient feels better no new complaints Alert awake oriented 3 Severe weakness, PT recommend inpatient rehabilitation Vital signs noted Hospitalist Physical - Constitutional Vitals: Temp Pulse Resp BP Pulse Ox 97.9 F 76 20 124/84 95 08/28/18 16:53 08/28/18 16:53 08/28/18 16:53 08/28/18 16:53 08/28/18 16:53 General appearance: Present: no acute distress, well-nourished - EENT Eyes: Present: PERRL, EOM intact - Neck Neck: Present: supple, normal ROM - Respiratory Respiratory effort: normal Respiratory: negative: rales, rhonchi, wheezing - Cardiovascular Rhythm: regular Heart Sounds: Present: S1 & S2 - Extremities Extremities: no ischemia, No edema, abnormal (generalized weakness) Peripheral Pulses: within normal limits - Abdominal General gastrointestinal: soft, non-tender, non-distended, normal bowel sounds - Integumentary Integumentary: Present: clear, warm - Psychiatric Psychiatric: appropriate mood/affect, cooperative - Neurologic Neurologic: CNII-XII intact, moves all extremities Results - Labs CBC & Chem 7: 08/28/18 05:02 08/28/18 05:02 Labs: Laboratory Last Values WBC 5.3 K/mm3 (4.5-11.0) 08/28/18 05:02 RBC 3.19 M/mm3 (3.65-5.03) L 08/28/18 05:02 Hgb 11.0 gm/dl (11.8-15.2) L 08/28/18 05:02 Hct 32.5 % (35.5-45.6) L 08/28/18 05:02 MCV 102 fl (84-94) H 08/28/18 05:02 MCH 34 pg (28-32) H 08/28/18 05:02 MCHC 34 % (32-34) 08/28/18 05:02 RDW 14.8 % (13.2-15.2) 08/28/18 05:02 Plt Count 240 K/mm3 (140-440) 08/28/18 05:02 Lymph % (Auto) 26.4 % (13.4-35.0) 08/28/18 05:02 [place] % (Auto) 13.7 % (0.0-7.3) H 08/28/18 05:02 Eos % (Auto) 1.6 % (0.0-4.3) 08/28/18 05:02 Baso % (Auto) 0.8 % (0.0-1.8) 08/28/18 05:02 Lymph # 1.4 K/mm3 (1.2-5.4) 08/28/18 05:02 [place] # 0.7 K/mm3 (0.0-0.8) 08/28/18 05:02 Eos # 0.1 K/mm3 (0.0-0.4) 08/28/18 05:02 Baso # 0.0 K/mm3 (0.0-0.1) 08/28/18 05:02 Seg Neutrophils % 57.5 % (40.0-70.0) 08/28/18 05:02 Seg Neutrophils # 3.1 K/mm3 (1.8-7.7) 08/28/18 05:02 PT 14.1 Sec. (12.2-14.9) 08/23/18 16:00 INR 1.05 (0.87-1.13) 08/23/18 16:00 APTT 21.5 Sec. (24.2-36.6) L 08/23/18 16:00 Sodium 130 mmol/L (137-145) L 08/28/18 05:02 Potassium 3.4 mmol/L (3.6-5.0) L 08/28/18 05:02 Chloride 91.8 mmol/L (98-107) L 08/28/18 05:02 Carbon Dioxide 24 mmol/L (22-30) 08/28/18 05:02 Anion Gap 18 mmol/L 08/28/18 05:02 BUN 14 mg/dL (9-20) 08/28/18 05:02 Creatinine 0.4 mg/dL (0.8-1.5) L 08/28/18 05:02 Estimated GFR > 60 ml/min 08/28/18 05:02 BUN/Creatinine Ratio 35 % 08/28/18 05:02 Glucose 244 mg/dL (75-100) H 08/28/18 05:02 POC Glucose 111 (70-105) H 08/28/18 16:24 Hemoglobin A1c 10.8 % (4-6) H 08/24/18 01:04 Calcium 9.0 mg/dL (8.4-10.2) 08/28/18 05:02 Phosphorus 3.30 mg/dL (2.5-4.5) 08/27/18 05:40 Magnesium 1.70 mg/dL (1.7-2.3) 08/27/18 05:40 Total Bilirubin 2.50 mg/dL (0.1-1.2) H 08/27/18 05:40 AST 95 units/L (5-40) H 08/27/18 05:40 ALT 59 units/L (7-56) H 08/27/18 05:40 Alkaline Phosphatase 200 units/L (35-129) H 08/27/18 05:40 Ammonia 73.0 umol/L (25-60) H 08/25/18 03:55 Total Protein 6.9 g/dL (6.3-8.2) 08/27/18 05:40 Albumin 3.2 g/dL (3.9-5) L 08/27/18 05:40 Albumin/Globulin Ratio 0.9 % 08/27/18 05:40 Triglycerides 121 mg/dL (2-149) 08/24/18 04:38 Cholesterol 139 mg/dL (50-199) 08/24/18 04:38 LDL Cholesterol Direct 85 mg/dL (50-130) 08/24/18 04:38 HDL Cholesterol 36 mg/dL (40-59) L 08/24/18 04:38 Cholesterol/HDL Ratio 3.86 % 08/24/18 04:38 Lipase 75 units/L (13-60) H 08/25/18 03:55 Plasma/Serum Alcohol < 0.01 % (0-0.07) 08/23/18 16:00
[2018-08-29 08:06] VITALS: BP 122/87
[2018-08-29] MEDS: LOPRESSOR PO SCH (10:35)
[2018-08-29] MEDS: PAXIL PO SCH (10:36)
[2018-08-29] MEDS: PEPCID PO SCH (10:36)
[2018-08-29] MEDS: LASIX IV SCH (10:36)
[2018-08-29] MEDS: FLOMAX PO SCH (10:36)
[2018-08-29] MEDS: NORVASC PO SCH (10:37)
[2018-08-29] MEDS: HABITROL TD SCH (10:37)
[2018-08-29 10:44] LABS: BUN/Creatinine Ratio 32; Blood Urea Nitrogen 16 mg/dL (9-20); Hemolysis Index 15
[2018-08-29] MEDS: GLUCOTROL PO SCH (10:45)
[2018-08-29] MEDS: HumuLIN R SUB-Q SCH ×2 (10:48→11:30)
[2018-08-29] MEDS: TENORMIN PO SCH (10:49)
[2018-08-29] MEDS: SODIUM CHLORIDE FLUSH SYRINGE 10 ML IV SCH (10:50)
[2018-08-29] MEDS: THALITONE PO SCH (12:42)
--- NOTE | 2018-08-29 14:36 | Discharge Summary ---
Providers - Providers Date of Admission: 08/24/18 00:26 Date of discharge: 08/29/18 Attending physician: GREGG GONGORA 08/26/18 06:12 Physical Therapy Evaluation and Treat [CONS] Routine Comment: SEVERE Reason For Exam: BILATERAL LOWER EXTREMITY WEAKNESS 08/26/18 06:13 Occupational Therapy Evaluate and Treat [CONS] Routine Comment: SEVERE Reason For Exam: BILATERAL LOWER EXTREMITY WEAKNESS Primary care physician: [employer] Hospitalization Condition: Stable Pertinent studies: CT abdomen/pelvis: 1. Findings most likely represent acute pancreatitis involving the head and uncinate process. The uncinate process is enlarged and therefore a mass cannot be excluded. 2. Retroperitoneal and upper abdominal adenopathy may be inflammatory or related to hepatocellular disease but malignancy cannot be excluded. Close clinical follow-up and short interval follow-up CT scan is recommended. 3. Diffuse fatty infiltration of the liver and hepatomegaly. Correlation with LFTs is recommended 4. Patchy airspace infiltrates in the bilateral lung bases most consistent with pneumonia Hospital course: 43-year-old obese male patient was admitted with acute pancreatitis and alcohol withdrawal symptoms. Placed on CIWA protocol, symptoms significantly improved, pancreatitis resolved. Received physical therapy occupational therapy, PT recommended inpatient rehabilitation, patient with Social issues, no prior source for insurance, case management recommend home health with home PT. Patient is medically stable for discharge, discharged home with home health set up with his . Discharge plan and management was thoroughly discussed with the patient and his at bedside and they both verbalized understanding. Discharge diagnosis and management: /Alcohol withdrawal symptoms; resolved /Acute pancreatitis; significantly improved Advance diet to soft diet, closely monitor /-Hyponatremia: Mild improvement, closely monitored electrolytes /-Hypokalemia; replaced per protocol /Hypophosphatemia; replaced per protocol /-Alcoholic liver disease; liver function tests trending down, stable on discharge Recommended repeat CT scan outpatient with primary care physician /Hepatic encephalopathy; ammonia significantly improved Patient is alert awake oriented 3. prescribed lactulose daily on discharge /Type 2 diabetes mellitus[A1c 10.8]; placed on Accu-Chek sliding scale coverage insulin discharged with glipizide and advised diabetic diet /Chronic alcohol use; counseling advice to quit Patient had acute alcohol rehabilitation and medical stable. /-Tobacco use; smoking cessation and nicotine patch Patient advised alcohol rehabilitation upon discharge, Verbalized understanding. PT recommended inpatient rehabilitation, Has social issues and lacks payer source. Case management set up home health with PT on discharge. Hospitalist Physical General appearance: Present: no acute distress, well-nourished - EENT Eyes: Present: PERRL, EOM intact - Neck Neck: Present: supple, normal ROM - Respiratory Respiratory effort: normal Respiratory: negative: rales, rhonchi, wheezing - Cardiovascular Rhythm: regular Heart Sounds: Present: S1 & S2 - Extremities Extremities: no ischemia, No edema, abnormal (generalized weakness) Peripheral Pulses: within normal limits - Abdominal General gastrointestinal: soft, non-tender, non-distended, normal bowel sounds - Integumentary Integumentary: Present: clear, warm - Psychiatric Psychiatric: appropriate mood/affect, cooperative - Neurologic Neurologic: CNII-XII intact, moves all extremities Disposition: [id number]/[place]-06 HOME UNDER HOME [facility] Time spent for discharge: 34 minutes Core Measure Documentation - Palliative Care Palliative Care/ Comfort Measures: Not Applicable - Core Measures Any of the following diagnoses?: none Exam - Constitutional Vitals: Temp Pulse Resp BP Pulse Ox 98.1 F 65 20 122/87 98 08/29/18 08:04 08/29/18 08:04 08/29/18 08:04 08/29/18 08:04 08/29/18 08:04 Plan Activity: up only with assistance, fall precautions Weight Bearing Status: Non-Weight Bearing Diet: regular Additional Instructions: F/u with GI outpt in 2/3 weeks, may need repeat CT abdomen as outpt. Please check BG in the am fasting and at bedtime Follow up with: PRIMARY MD BILLY [Primary Care Provider] - 7 Days ENMANUEL ADAIR MD [Referring] - 7 Days Prescriptions: amLODIPine [Norvasc] 10 mg PO DAILY #30 tablet Folic Acid 1 tab PO QDAY #30 tab Gabapentin [Neurontin] 200 mg PO TID PRN #90 capsule PRN Reason: LEG PAIN glipiZIDE [Glipizide] 5 mg PO DAILY #30 tablet Lactulose [Kristalose] 20 gm PO QDAY 30 Days packet Nicotine [Habitrol] 21 mg TD QDAY #30 patch Thiamine [Vitamin B-1] 100 mg PO QDAY #30 tablet Other Discharge Orders: Glucometer supplies[Amb] Location: None Selected Glucometer (Amb) Location: None Selected
== END 2018-08-29 16:32 | disposition home health service (06) | DRG 439 ==
LOC: ED 15:53 → 4A 08-24 00:26
PROVIDERS: ADMIT Internal Medicine; ATTEND Internal Medicine
DX: K85.20 Alcohol induced acute pancreatitis without necrosis or infection (principal); E87.1 Hypo-osmolality and hyponatremia; G72.1 Alcoholic myopathy; R10.9 Unspecified abdominal pain; F10.10 Alcohol abuse, uncomplicated; Y90.9 Presence of alcohol in blood, level not specified; E86.0 Dehydration; R73.9 Hyperglycemia, unspecified; F17.210 Nicotine dependence, cigarettes, uncomplicated; E87.6 Hypokalemia; K29.20 Alcoholic gastritis without bleeding; E83.39 Other disorders of phosphorus metabolism; K70.9 Alcoholic liver disease, unspecified; K72.90 Hepatic failure, unspecified without coma; E66.9 Obesity, unspecified; Z79.01 Long term (current) use of anticoagulants; Z79.899 Other long term (current) drug therapy; Z71.41 Alcohol abuse counseling and surveillance of alcoholic; Z71.6 Tobacco abuse counseling; Z68.35 Body mass index [BMI] 35.0-35.9, adult
CPT/HCPCS: 36415; 74177; 80048; 80053; 80061; 80320; 82140; 82962; 83036; 83690; 83735; 84100; 85025; 85610; 85730; G0378; C9113; G0480; J0360; J1170; J1815; J1940; J2060; J3411; J3480; J7030; J7040; Q9967